=== PATIENT | female | born 1985 | race Caucasian/White ===

== ENCOUNTER 2017-08-31 10:24 | Emergency (ER) | payer MEDICAID ==
[2017-08-31 11:06] LABS: Bilirubin Negative (Negative); Blood, Urine Trace (Negative); Clarity Clear (Clear); Glucose, Urine (Dipstick) Negative (Negative); Leukocyte Negative (Negative); Nitrite Negative (Negative); Protein, Urine (Dipstick) Negative (Neg-Trace); Urobilinogen 0.2 mg/dL (0.2-1.0)
[2017-08-31 11:14] LABS: Pregnancy Test - Urine (BHCG) Negative (Negative); Pregu Control Background? CLEAR/WHITE (CLR/WHITE); Pregu Control Bar Appear? YES (CONTROL BAR)
[2017-08-31 11:16] LABS: Bacteria/HPF Rare-Few HPF (None Seen); RBC/HPF 0-3 HPF (0-3); WBC/HPF None Seen HPF (0-3)
[2017-08-31] MEDS ORDERED: Ibuprofen 800 MG TAB ONE (11:19)
--- NOTE | 2017-08-31 12:01 | ULT ---
PELVIC ULTRASOUND: Date: 08/31/17 Transabdominal and endovaginal ultrasound of pelvis performed. INDICATION: Left lower quadrant and left pelvic pain. FINDINGS: The uterus has normal sonographic appearance. Uterine measurements recorded at 8.8 x 3.5 x 4.4 cm. Th e endometrium is mildly thickened, measured up to 1.2 cm. Right ovary is not identified. Left ovary is identified and appears unremarkable. Color Doppler with spectral analysis demonstrates blood flow to the left ovary. Small amount of free fluid seen in the cul-de-sac. IMPRESSION: 1. Mildly thickened endometrium. 2. Small amount of free fluid in the cul-de-sac. 3. Right ovary not identified due to overlying bowel gas in right pelvis. POS: [facility]
[2017-09-03 23:28] LABS: Chlamydia by PCR Not Detected (NotDetected); GC by PCR Not Detected (NotDetected)
== END 2017-08-31 12:13 | disposition home or self-care (01) ==
LOC: SCSER 10:24
DX: R10.2 Pelvic and perineal pain (principal); I10 Essential (primary) hypertension; F41.9 Anxiety disorder, unspecified; Z79.899 Other long term (current) drug therapy
CPT/HCPCS: 76856; 81003; 81015; 81025; 87480; 87491; 87510; 87591; 87660

== ENCOUNTER 2018-03-01 09:53 | Emergency (ER) | payer MEDICAID | END 2018-03-01 10:24 | disposition home or self-care (01) | LOC: SCSER 09:53 | DX: O99.89 Other specified diseases and conditions complicating pregnancy, childbirth and the puerperium (principal); R05 Cough; O99.343 Other mental disorders complicating pregnancy, third trimester; F41.9 Anxiety disorder, unspecified; O16.3 Unspecified maternal hypertension, third trimester; Z3A.30 30 weeks gestation of pregnancy | CPT/HCPCS: 99283 ==

== ENCOUNTER 2018-03-20 12:26 | Emergency (ER) | payer OTHER ==
[2018-03-20] MEDS ORDERED: HYDROcodone/Acetaminophen 5/325 mg Tablet ONE (13:20)
[2018-03-20 13:55] LABS: Bilirubin Negative (Negative); Blood, Urine Negative (Negative); Clarity Slightly Cloudy (Clear); Glucose, Urine (Dipstick) Negative (Negative); Leukocyte Negative (Negative); Nitrite Negative (Negative); Protein, Urine (Dipstick) Negative (Neg-Trace); Urobilinogen 0.2 mg/dL (0.2-1.0)
[2018-03-20 13:59] LABS: #Basophils 0.1 thou/uL (0.0-0.2); #Lymphocytes 0.8 thou/uL (1.20-3.40); #Monocytes 0.5 thou/uL (0.11-0.59); #Neutrophils 8.5 thou/uL (1.40-6.50); %Basophils 0.5 % (0.0-1.0); %Eosinophils 0.2 % (0.0-10.0); %Lymphocytes 8.3 % (21.0-51.0); %Monocytes 4.9 % (0.0-10.0); %Neutrophils 86.1 % (42.0-75.0); Hemoglobin 12.4 g/dL (12.0-16.0); Mean Corpuscular HGB CONC 32.6 g/dL (32.0-36.0); Mean Corpuscular Hemoglobin 27.8 pg (27.0-31.0); Mean Corpuscular Volume 85.3 fL (78.0-98.0); Mean Platelet Volume 10.6 fL (7.4-10.4); Platelet Count 207 thou/uL (130-400); RBC Distribution Width 14.1 % (11.5-14.5); Red Blood Cell (RBC) Count 4.45 mill/uL (4.20-5.40); White Blood Cell (WBC) Count 9.9 thou/uL (4.8-10.8)
[2018-03-20 14:07] LABS: ALT (SGPT) 11 U/L (8-55); AST (SGOT) 13 U/L (5-34); Albumin 3.5 g/dL (3.5-5.0); Alkaline Phosphatase 113 U/L (40-150); Anion Gap 14 mmol/L (10-20); BUN (Urea Nitrogen) 6 mg/dL (7.0-18.7); Bilirubin, Total 0.3 mg/dL (0.2-1.2); Calc. Creatinine Clearance 0 mL/min (70-130); Calcium 9.1 mg/dL (7.8-10.44); Carbon Dioxide 19 mmol/L (22-29); Chloride 107 mmol/L (98-107); Estimated GFR-MDRD Greater than 90; Glucose 94 mg/dL (70-105); Potassium 4.2 mmol/L (3.5-5.1); Protein, Total 7.5 g/dL (6.0-8.3); Sodium 136 mmol/L (136-145)
== END 2018-03-20 14:32 | disposition home or self-care (01) ==
LOC: SCSER 12:26
DX: O99.713 Diseases of the skin and subcutaneous tissue complicating pregnancy, third trimester (principal); L02.412 Cutaneous abscess of left axilla; O99.343 Other mental disorders complicating pregnancy, third trimester; F41.9 Anxiety disorder, unspecified; I10 Essential (primary) hypertension; Z79.899 Other long term (current) drug therapy; Z3A.33 33 weeks gestation of pregnancy
CPT/HCPCS: 80053; 81003; 83605; 85025; 87804; 96360

== ENCOUNTER 2018-04-02 12:12 | Inpatient (IN) | payer OTHER ==
[2018-04-02 13:06] LABS: #Basophils 0.1 thou/uL (0.0-0.2); #Eosinphils 0.3 thou/uL (0.0-0.7); #Lymphocytes 2.8 thou/uL (1.20-3.40); #Monocytes 0.9 thou/uL (0.11-0.59); #Neutrophils 10.2 thou/uL (1.40-6.50); %Basophils 0.7 % (0.0-1.0); %Eosinophils 2.1 % (0.0-10.0); %Lymphocytes 19.7 % (21.0-51.0); %Monocytes 6.3 % (0.0-10.0); %Neutrophils 71.3 % (42.0-75.0); Hemoglobin 12.8 g/dL (12.0-16.0); Mean Corpuscular HGB CONC 32.9 g/dL (32.0-36.0); Mean Corpuscular Hemoglobin 29.5 pg (27.0-31.0); Mean Corpuscular Volume 89.7 fL (78.0-98.0); Mean Platelet Volume 8.8 fL (7.4-10.4); Platelet Count 313 thou/uL (130-400); RBC Distribution Width 14.3 % (11.5-14.5); Red Blood Cell (RBC) Count 4.32 mill/uL (4.20-5.40); White Blood Cell (WBC) Count 14.3 thou/uL (4.8-10.8)
[2018-04-02 13:25] VITALS: BMI 52.0
[2018-04-02 13:33] LABS: ALT (SGPT) 7 U/L (8-55); AST (SGOT) 12 U/L (5-34); Albumin 3.3 g/dL (3.5-5.0); Alkaline Phosphatase 128 U/L (40-150); Anion Gap 15 mmol/L (10-20); BUN (Urea Nitrogen) 6 mg/dL (7.0-18.7); Bilirubin, Total Less than 0.2 mg/dL (0.2-1.2); Calc. Creatinine Clearance 262 mL/min (70-130); Calcium 9.5 mg/dL (7.8-10.44); Carbon Dioxide 17 mmol/L (22-29); Chloride 108 mmol/L (98-107); Estimated GFR-MDRD Greater than 90; Globulin 4.1 g/dL (2.4-3.5); Glucose 92 mg/dL (70-105); Potassium 3.8 mmol/L (3.5-5.1); Protein, Total 7.4 g/dL (6.0-8.3); Sodium 136 mmol/L (136-145)
[2018-04-02] MEDS ORDERED: Betamet Acet/Betamet Na Ph 30 MG/5 ML VIAL ONE (13:47)
[2018-04-02] MEDS ORDERED: Betamet Acet/Betamet Na Ph 30 MG/5 ML VIAL IM SCH (14:00)
[2018-04-02 14:45] VITALS: BP 117/55; TEMP 97.9
[2018-04-02 15:19] LABS: Creatinine, Urine 230.25 mg/dL (47-110)
--- NOTE | 2018-04-02 16:06 | ULT ---
OBSTETRIC SONOGRAM LIMITED SONOGRAPHIC BIOPHYSICAL PROFILE EXAM: 04/02/18 HISTORY: induced hypertension. FINDINGS: Single intrauterine gestation in breech presentation. Grade I placenta is posterior. Heart motion dem onstrated at 131 beats per minute. Amniotic fluid index 12.3. Good tone, breathing, and gross movements are demonstrated. IMPRESSION: Sonographic biophysical profile exam is 12/04. POS: [facility]
== END 2018-04-02 16:40 | disposition home health service (06) | DRG 832 ==
LOC: L&D/OP 12:12 → L&D 12:16
PROVIDERS: ADMIT Family Medicine; ATTEND Family Medicine
DX: O10.913 Unspecified pre-existing hypertension complicating pregnancy, third trimester (principal); Z68.43 Body mass index [BMI] 50.0-59.9, adult; O34.219 Maternal care for unspecified type scar from previous cesarean delivery; E66.9 Obesity, unspecified; O99.213 Obesity complicating pregnancy, third trimester; Z3A.34 34 weeks gestation of pregnancy; Z79.899 Other long term (current) drug therapy
CPT/HCPCS: 36415; 76819; 80053; 82570; 84156; 85025; J0702

== ENCOUNTER 2018-04-02 21:06 | Day surgery (SDC) | payer OTHER ==
[2018-04-02 21:53] VITALS: BMI 52.0
--- NOTE | 2018-04-04 04:15 | PRG ---
DATE OF SERVICE: 04/02/2018 OB ER ENCOUNTER PRIMARY OIL WELL LOGGER: Gagan Novak MD CHIEF COMPLAINT: Vaginal bleeding. HISTORY OF PRESENT ILLNESS: The patient is a 33-year-old female, who re-presented to the labor and Delivery ER after her initial PIH workup earlier in the day with complaints of vaginal bleeding. The patient reports that when she went to the bathroom and wiped, she noticed that she had blood on the toilet paper and got concerned and came in. Of note, the patient had a cath UA performed at her previous visit to the Labor and Delivery ER the same day. The patient denies any other complaints. PAST MEDICAL HISTORY: Chronic hypertension. PAST SURGICAL HISTORY: Prior x1. MEDICATIONS: 1. Procardia XL. 2. vitamins. ALLERGIES: NO KNOWN DRUG ALLERGIES. SOCIAL HISTORY: Denies drug, alcohol, or tobacco use. LABORATORY DATA: OB labs, unavailable at the time of dictation. REVIEW OF SYSTEMS: Per HPI. PHYSICAL EXAMINATION: VITAL SIGNS: Blood pressure 126/68, heart rate of 109, respiratory rate 20, temperature 98.1. GENERAL: She appears to be in no acute distress. She is alert and oriented, cooperative, pleasant to interact with. HEAD: Normocephalic and atraumatic. LUNGS: Clear to auscultation bilaterally. HEART: Has regular rate and rhythm. ABDOMEN: Soft, gravid, nontender. PELVIC: Vulva is without masses, lesions, or erythema. Her vestibular region around just superior to her urethra shows a very small laceration to the mucosa with a small blood clot there, appears to have been bleeding. There is no blood visible at the introitus or in the outer portion of vaginal vault. On digital exam, there is no blood seen on the glove. heart tracing shows the fetus with a baseline in the 140s with moderate long-term variability. Positive acceleration. No deceleration. Tocometer does not show any contraction. ASSESSMENT AND PLAN: The patient is a 33-year-old female with a history of chronic hypertension, previously seen today for a PIH workup and received a straight cath UA, resulting in a small laceration in the mucosa above the urethra. It appears that her very isolated bleeding came from the small laceration. Reassurance has been given to the patient. Fetus has a category one tracing. The patient has been discharged to home with instructions to follow up with her primary OB as scheduled. Job ID: [id number]
== END 2018-04-02 22:38 | disposition home or self-care (01) ==
LOC: L&D/OP 21:06
PROVIDERS: ATTEND Family Medicine
DX: O71.5 Other obstetric injury to pelvic organs (principal); O16.9 Unspecified maternal hypertension, unspecified trimester; Z3A.00 Weeks of gestation of pregnancy not specified; Z79.2 Long term (current) use of antibiotics; Z79.899 Other long term (current) drug therapy; Z98.890 Other specified postprocedural states
CPT/HCPCS: 99282

== ENCOUNTER 2018-04-06 11:02 | Day surgery (SDC) | payer OTHER ==
[2018-04-06 11:35] VITALS: BMI 52.0
[2018-04-06 11:37] VITALS: BP 117/68; TEMP 97.4
[2018-04-06] MEDS ORDERED: Acetaminophen/Codeine 30-300mg Tablet PO PRN (12:46)
--- NOTE | 2018-04-06 12:54 | PDOC.FPROB ---
FMR OB H&P: HPI - History of Present Illness Chief Complaint: dental pain, high bp History of Present Illness: Patient comes in for evaluation of dental pain getting worse for the last 3-4 days. She states the pain became untolerable today and she has been unable to eat or drink without pain. She is still able to drink luke-warm liquids but it does cause her some pain. She denies fevers, chills, sweats. No pain with jaw movement. No N/V/D. She states she has had a few jer-knowles contractions but nothing regular. Denies vaginal bleeding/discharge. Denies headache, visual changes, sob, or swelling. Denies burning with urination., States she checked her bp at [facility] and saw that it was in the 160s systolic. On arrival BP x2 in the 120s/80s. Primary Care Physician: sunny FMR OB H&P: Current - Care : 3 Para: 2 Gestational age: 35.3 Due date: 05/08/18 Dating Criteria: 1T US - OB Labs Blood type: A RH: positive Antibody Screen: negative HIV: negative RPR: negative HepBsAg: negative Quad screen: positive (down's) Gonorrhea: negative Chlamydia: negative FMR OB H&P: History - Past Medical History PMH: patient denies BP, DM, asthma - OB History OB History: PIH, C/S x1 pre-e plans for repeat c/s - Surgical History Sx History: c/s x1 - Social History Social History: denies alcohol, tobacco, or drugs FMR OB H&P: Medications - Current Home Medications: Medication Instructions Recorded Confirmed Type NIFEdipine [Procardia XL] 30 mg PO DAILY 04/02/18 04/06/18 History Amoxicillin/Potassium Clav 1 each PO BID 7 Days #14 tablet 04/06/18 Rx [Augmentin 875-125 Tablet] Allergies/Adverse Reactions: Allergies Allergy/AdvReac Type Severity Reaction Status Date / Time No Known Drug Allergies Allergy Verified 04/02/18 13:22 FMR OB H&P: ROS - Review of Systems General: denies: fever/chills, weight/appetite/sleep changes, night sweats, fatigue Eyes: denies: eye pain, vision changes ENT: reports: toothache. denies: nasal congestion, sore throat, trouble with swallowing Cardiovascular: denies: chest pain, palpitation Respiratory: denies: cough, congestion, shortness of breath Gastrointestinal: denies: abdominal pain, indigestion, diarrhea, constipation Genitourinary (Female): denies: dysuria, hematuria Musculoskeletal: denies: pain, stiffness Neurologic: denies: numbness, syncope Integumentary: denies: itching, rash Hematologic/Lymphatic: denies: prolonged or excessive bleeding FMR OB H&P: Vital Signs - Maternal Vital signs: Vital Signs - First Documented Temp Pulse Resp BP 97.4 F L 114 H 20 117/68 04/06/18 11:29 04/06/18 11:29 04/06/18 11:29 04/06/18 11:29 FMR OB H&P: Physical Exam - Physical Exam General: NAD, awake, alert and oriented HEENT: PERRLA, EOMI, MMM Deviation from normal: L 3rd molar likely cavity, mild gingivits, no swelling to jaw, no pain TMJ Neck: supple Heart: RRR, normal S1/S2 General: CTAB, no respiratory distress, good air movement Abdomen: soft, gravid, fundus(cm) Musculoskeletal: normal gait and station Neurological: cranial nerves II through XII intact Skin: no rash, capillary refill <2 seconds FMR OB H&P: A/P - Problem List (1) Pain, dental Status: Acute Code(s): K08.89 - OTHER SPECIFIED DISORDERS OF TEETH AND SUPPORTING STRUCTURES (2) Pain due to dental caries Status: Acute Code(s): K02.9 - DENTAL CARIES, UNSPECIFIED (3) Status: Acute Disposition: # Dental pain - likey dental caries at L 3rd molar, mild gingivitis - Augmentin 875mg BID - Tylenol #3 tabs q6 hrs PRN - f/u with dentist LYSSA # Hx PIH - BP WNL x2 - no PIH sxs - recent workup 3-4 days ago WNL - f/u with PCP in 2-3 days Discussion: Date/Time: 04/06/18 1249 This H&P was discussed with [] and [] who agree with the above documentation and plan. Attending Addendum - Attending Addendum Date/Time: 04/06/18 0246 I personally evaluated the patient and discussed the management with Dr. Navarro. I agree with the History, Examination, Assessment and Plan documented above.
== END 2018-04-06 13:20 | disposition home or self-care (01) ==
LOC: L&D/OP 11:02
PROVIDERS: ATTEND Family Medicine
DX: O99.613 Diseases of the digestive system complicating pregnancy, third trimester (principal); K08.89 Other specified disorders of teeth and supporting structures; K05.10 Chronic gingivitis, plaque induced; O16.3 Unspecified maternal hypertension, third trimester; Z3A.35 35 weeks gestation of pregnancy; Z79.899 Other long term (current) drug therapy
CPT/HCPCS: 99283

== ENCOUNTER 2018-04-08 04:02 | Day surgery (SDC) | payer OTHER ==
[2018-04-08 04:34] VITALS: BP 141/78; TEMP 97.5; BMI 52.0
[2018-04-08 04:56] LABS: Creatinine, Urine 179.35 mg/dL (47-110)
[2018-04-08 05:09] LABS: #Basophils 0.1 thou/uL (0.0-0.2); #Eosinphils 0.2 thou/uL (0.0-0.7); #Lymphocytes 3.5 thou/uL (1.20-3.40); #Monocytes 0.9 thou/uL (0.11-0.59); #Neutrophils 8.8 thou/uL (1.40-6.50); %Basophils 0.4 % (0.0-1.0); %Eosinophils 1.2 % (0.0-10.0); %Lymphocytes 26.1 % (21.0-51.0); %Monocytes 6.7 % (0.0-10.0); %Neutrophils 65.5 % (42.0-75.0); Hemoglobin 12.8 g/dL (12.0-16.0); Mean Corpuscular HGB CONC 33.5 g/dL (32.0-36.0); Mean Corpuscular Hemoglobin 29.8 pg (27.0-31.0); Platelet Count 283 thou/uL (130-400); RBC Distribution Width 14.3 % (11.5-14.5); White Blood Cell (WBC) Count 13.4 thou/uL (4.8-10.8)
[2018-04-08 05:29] LABS: ALT (SGPT) 9 U/L (8-55); AST (SGOT) 10 U/L (5-34); Albumin 3.5 g/dL (3.5-5.0); Alkaline Phosphatase 122 U/L (40-150); Anion Gap 15 mmol/L (10-20); BUN (Urea Nitrogen) 9 mg/dL (7.0-18.7); Bilirubin, Total 0.2 mg/dL (0.2-1.2); Calc. Creatinine Clearance 258 mL/min (70-130); Calcium 9.2 mg/dL (7.8-10.44); Carbon Dioxide 18 mmol/L (22-29); Chloride 105 mmol/L (98-107); Estimated GFR-MDRD Greater than 90; Globulin 3.4 g/dL (2.4-3.5); Glucose 99 mg/dL (70-105); Potassium 4.3 mmol/L (3.5-5.1); Protein, Total 6.9 g/dL (6.0-8.3); Sodium 134 mmol/L (136-145)
[2018-04-08] MEDS ORDERED: Lactated Ringer's 1,000 ML IV SCH (05:30)
[2018-04-08] MEDS: Metoclopramide HCl 10 MG/2 ML VIAL IVP PRN ×4 (05:47→07:17)
[2018-04-08] MEDS: diphenhydrAMINE 50 MG/ML VIAL IVP PRN ×2 (05:48→06:46)
== END 2018-04-08 08:40 | disposition home health service (06) ==
LOC: L&D/OP 04:02
PROVIDERS: ATTEND Family Medicine
DX: O99.89 Other specified diseases and conditions complicating pregnancy, childbirth and the puerperium (principal); R51 Headache; R07.9 Chest pain, unspecified; Z79.899 Other long term (current) drug therapy
CPT/HCPCS: 36415; 80053; 82570; 84156; 85025; 96360; 96361; 96375; 99283; J1200; J2765

== ENCOUNTER 2018-04-18 09:50 | Inpatient (IN) | payer OTHER ==
[2018-04-18] MEDS ORDERED: Lactated Ringer's 1,000 ML IV SCH ×2 (10:45→17:37)
[2018-04-18] MEDS ORDERED: Ondansetron PF 4 MG/2 ML Vial IVP PRN ×3 (10:45→17:37)
[2018-04-18] MEDS ORDERED: Bicitra 30 ML UDCUP PO SCH (11:00)
[2018-04-18] MEDS ORDERED: CEFAZOLIN 3 GM, Admixture Fee 1 EACH in Sodium Chloride 0.9% 100 ML IVPB SCH (11:30)
[2018-04-18 11:35] LABS: Hemoglobin 13.1 g/dL (12.0-16.0); Mean Corpuscular HGB CONC 33.2 g/dL (32.0-36.0); Mean Corpuscular Hemoglobin 29.2 pg (27.0-31.0); Mean Corpuscular Volume 88.1 fL (78.0-98.0); Platelet Count 273 thou/uL (130-400); RBC Distribution Width 14.2 % (11.5-14.5); Red Blood Cell (RBC) Count 4.47 mill/uL (4.20-5.40)
[2018-04-18] MEDS ORDERED: Ondansetron PF 4 MG/2 ML Vial ONE ×3 (11:53→14:11)
[2018-04-18] MEDS ORDERED: Morphine PF 1 MG/ML SYR ONE (11:53)
[2018-04-18] MEDS ORDERED: Oxytocin 10 UNITS/ML VIAL ONE (11:53)
[2018-04-18] MEDS ORDERED: Midazolam HCl 2 mg/2 ml Vial ONE (11:53)
[2018-04-18] MEDS ORDERED: ePHEDrine/0.9% NaCl/PF SYRINGE 50 mg/10 ml ONE (11:53)
[2018-04-18] MEDS ORDERED: CEFAZOLIN/Water 2 GM/20 ML SYRINGE SLOW IVP SCH (12:00)
[2018-04-18 12:15] LABS: Syphilis Antibody Nonreactive (Nonreactive); Syphilis Antibody Index 0.04 S/CO (<1.00 Non-Reactive)
[2018-04-18 12:16] LABS: HBSAg Index 0.24 S/CO (0-0.99); Hep B Surf Ag Non-Reactive S/CO (NonReactive)
[2018-04-18 12:20] VITALS: BMI 51.0
[2018-04-18] MEDS ORDERED: Fentanyl 250 MCG/5 ML VIAL ONE (12:33)
[2018-04-18] MEDS ORDERED: PROPOFOL 20 ML ONE (12:34)
[2018-04-18] MEDS ORDERED: Rocuronium Bromide 50 MG/5 ML VIAL ONE (12:34)
[2018-04-18] MEDS ORDERED: Succinylcholine Chloride 20 MG/ML 10 ml SYRINGE FS ONE (12:34)
[2018-04-18] MEDS ORDERED: PHENYLEPHRINE-NS 100 MCG/ML 10 ML SYRINGE ONE (12:41)
[2018-04-18] MEDS ORDERED: Meperidine HCl/PF 25 MG/ML VIAL SLOW IVP PRN (12:57)
[2018-04-18] MEDS ORDERED: HYDROmorphone 2 MG/ML VIAL SLOW IVP PRN (12:57)
[2018-04-18] MEDS ORDERED: Ondansetron HCl/PF 4 MG/2 ML Vial IVP PRN (12:57)
[2018-04-18] MEDS ORDERED: L&D-Morphine 4 MG/ML VIAL SLOW IVP PRN (12:57)
[2018-04-18] MEDS ORDERED: Promethazine HCl 25 MG/ML VIAL IM PRN (12:58)
[2018-04-18] MEDS ORDERED: Zolpidem Tartrate 5 MG TAB PO PRN (12:58)
[2018-04-18] MEDS ORDERED: fentaNYL Citrate/PF 2,000 MCG in Sodium Chloride 0.9% 60 ML IV PRN (12:58)
[2018-04-18] MEDS ORDERED: Naloxone HCl 0.4 mg/ml Vial IV PRN (12:58)
[2018-04-18] MEDS ORDERED: diphenhydrAMINE 50 MG/ML VIAL IVP PRN (12:58)
[2018-04-18] MEDS ORDERED: diphenhydrAMINE 50 MG/ML VIAL IM PRN (12:58)
[2018-04-18] MEDS ORDERED: diphenhydrAMINE 25 MG CAP PO PRN ×2 (12:58→17:37)
[2018-04-18] MEDS ORDERED: Ketorolac Tromethamine 30 MG/ML VIAL IVP SCH (13:00)
[2018-04-18] MEDS ORDERED: Communication Order-Pharmacy FS SCH (13:00)
[2018-04-18] MEDS ORDERED: Atropine Sulfate 0.4 mg/1 ml Vial ONE (13:05)
[2018-04-18] MEDS ORDERED: Atropine Sulfate 1 mg/10 ml Syringe ONE (13:06)
[2018-04-18] MEDS ORDERED: NS / Oxytocin 40 units/1000ml 1,000 ML ONE (13:58)
[2018-04-18] MEDS ORDERED: Fentanyl 100 MCG/2 ML VIAL ONE (14:00)
[2018-04-18] MEDS ORDERED: HYDROcodone/Acetaminophen 5/325 mg Tablet PO PRN (17:37)
[2018-04-18] MEDS ORDERED: Meperidine HCl/PF 25 MG/ML VIAL IM PRN (17:37)
[2018-04-18] MEDS ORDERED: Simethicone Chewable 80 MG TAB PO PRN (17:37)
[2018-04-18] MEDS ORDERED: Bisacodyl 10 MG SUPP PR PRN (17:37)
[2018-04-18] MEDS ORDERED: Lanolin Ointment 7 GM TUBE TOP PRN (17:37)
[2018-04-18] MEDS ORDERED: NS / Oxytocin 40 units/1000ml 1,000 ML IV SCH (17:37)
[2018-04-18] MEDS: Ibuprofen 800 MG TAB PO SCH ×2 (18:05→22:52)
[2018-04-18] MEDS: Docusate Calcium (SURFAK) 240 MG CAP PO SCH (22:51)
[2018-04-18] MEDS: Ferrous Sulfate 325 MG TAB PO SCH (22:52)
--- NOTE | 2018-04-19 00:34 | OP ---
DATE OF PROCEDURE: 04/18/2018 RESIDENT SURGEON: Lance De Leon DO. ATTENDING SURGEON: Gagan Novak MD. PROCEDURE PERFORMED: Repeat low-transverse section. PREOPERATIVE DIAGNOSES: 1. Term intrauterine . 2. Previous section. 3. Chronic hypertension. POSTOPERATIVE DIAGNOSES: 1. Term intrauterine , delivered. 2. Repeat low-transverse section. 3. Chronic hypertension. ANESTHESIA: General. INDICATIONS: The patient is a 33-year-old G2, now P2 female at 37 and 1 week gestation, who presents for repeat scheduled . PROCEDURE IN DETAIL: After risks, benefits, and alternatives were explained to the patient, she gave informed consent. Preoperative antibiotics included 3 g of Ancef IV. The patient was taken to the operating room and she was placed in the supine position with left lateral tilt, and prepped and draped in usual sterile fashion. Subsequently, the patient underwent general anesthesia. Pfannenstiel incision was made with a scalpel and carried down to the level of the fascia, which was sharply nicked. The fascial cut was extended bilaterally with Nur scissors. The inferior and superior edges of the cut fascial edges were elevated with Kandy clamps and underlying rectus muscles were sharply and bluntly dissected free. The recti were divided digitally and retracted manually. The peritoneum was entered bluntly and retracted manually. The bladder blade was placed. A low-transverse score was made with a scalpel and the uterus was entered in the midline with the scalpel. Clear fluid was seen. The hysterotomy was extended manually. The infant was noted to be breech, but was easily delivered with fundal pressure. The mouth and nares were bulb suctioned. The cord was clamped and cut and grossly normal female infant was handed to the awaiting nurse. Cord blood was obtained. Placenta was manually extracted, found to be intact and sent for pathology. The uterus was externalized and the endometrium was curetted with a dry lap. The bladder blade was replaced and the uterus was closed with a running locking 0 Vicryl suture, followed by approximately 4 [id number] sutures with 0 Vicryl. Additionally, Floseal was used to ensure hemostasis at the site of hysterotomy. Following the use of Floseal, a small imbricating layer was added to the left portion of the hysterotomy and subsequently hemostasis was noted. The abdomen was irrigated with saline and suctioned free of clots. The uterus was internalized and hysterotomy was again noted to be hemostatic. Fascia was closed with a running nonlocking 0 PDS suture. Subcutaneous tissue was irrigated and there were no bleeders. The subcutaneous tissue was approximated with 3-0 Vicryl suture. The skin was subsequently approximated with anibal and pressure dressing was placed. All counts were correct. The patient tolerated the procedure well and was taken to the recovery room in stable condition. ESTIMATED BLOOD LOSS: Approximately 600 mL. COMPLICATIONS: None. SPECIMENS: Cord blood sent to the lab for blood type. Placenta sent for pathology review. FINDINGS: 1. Grossly normal female infant with Apgars of 9 and 9. 2. Grossly normal placenta with 3-vessel cord sent for pathology review. DRAINS: Victor to gravity draining clear urine. Job ID: [id number] [facility]
[2018-04-19] MEDS: HYDROcodone/Acetaminophen 5/325 mg Tablet PO PRN ×5 (04:17→20:40)
[2018-04-19 05:42] LABS: Hemoglobin 10.9 g/dL (12.0-16.0); Mean Corpuscular Hemoglobin 29.4 pg (27.0-31.0); Mean Platelet Volume 8.7 fL (7.4-10.4); Platelet Count 231 thou/uL (130-400); RBC Distribution Width 14.1 % (11.5-14.5); Red Blood Cell (RBC) Count 3.69 mill/uL (4.20-5.40); White Blood Cell (WBC) Count 12.8 thou/uL (4.8-10.8)
[2018-04-19] MEDS: Ibuprofen 800 MG TAB PO SCH ×3 (06:49→20:40)
[2018-04-19] MEDS: Ferrous Sulfate 325 MG TAB PO SCH ×2 (08:13→20:41)
[2018-04-19] MEDS: Docusate Calcium (SURFAK) 240 MG CAP PO SCH ×2 (09:09→20:40)
[2018-04-19] MEDS: Prenatal Vitamin 1 TAB PO SCH (09:10)
[2018-04-19] MEDS: Citalopram 20 MG TAB PO SCH (09:10)
[2018-04-19] MEDS ORDERED: Sodium Chloride 0.9% 10 ML ONE (11:51)
[2018-04-20] MEDS: HYDROcodone/Acetaminophen 5/325 mg Tablet PO PRN ×6 (00:55→22:41)
[2018-04-20] MEDS: Ibuprofen 800 MG TAB PO SCH ×3 (04:47→21:19)
--- NOTE | 2018-04-20 08:11 | PDOC.PP ---
Post Progress Note Post Day #: 2 Subjective: Doing well, no complaints. PO intake tolerated: yes Flatus: yes Ambulation: yes Vital Signs (12 hours) Temp Pulse Resp BP 04/20/18 04:00 98.3 F 103 H 18 118/59 L Weight Weight 270 lb - Physical Examination General: NAD Respiratory: non-labored breathing Abdominal: lochia, no distention, appropriately TTP Fundus firm & at: U-3 Skin: CS incision dry & intact, no rash Neurological: no gross focal deficits Psychiatric: A&Ox3, normal affect Result Diagrams: 04/19/18 05:24 Additional Labs: Post Labs Blood Type A POSITIVE 04/18/18 11:15 Hep Bs Antigen Non-Reactive S/CO (NonReactive) 04/18/18 11:15 (1) delivery delivered Code(s): O82 - ENCOUNTER FOR DELIVERY WITHOUT INDICATION Status: Acute - Assessment/Plan Continue routine postop care. Anticipate d/c tomorrow.
[2018-04-20] MEDS: Docusate Calcium (SURFAK) 240 MG CAP PO SCH ×2 (09:25→21:19)
[2018-04-20] MEDS: Citalopram 20 MG TAB PO SCH (09:25)
[2018-04-20] MEDS: Prenatal Vitamin 1 TAB PO SCH (09:25)
[2018-04-20] MEDS: Ferrous Sulfate 325 MG TAB PO SCH (09:41)
[2018-04-21] MEDS: HYDROcodone/Acetaminophen 5/325 mg Tablet PO PRN ×3 (02:26→11:45)
[2018-04-21] MEDS: Ferrous Sulfate 325 MG TAB PO SCH ×2 (02:27→10:35)
[2018-04-21] MEDS: Ibuprofen 800 MG TAB PO SCH (07:18)
[2018-04-21 08:09] VITALS: TEMP 98.1
[2018-04-21] MEDS: Citalopram 20 MG TAB PO SCH (10:35)
[2018-04-21] MEDS: Docusate Calcium (SURFAK) 240 MG CAP PO SCH (10:35)
[2018-04-21] MEDS: Prenatal Vitamin 1 TAB PO SCH (10:35)
[2018-04-21 11:43] VITALS: BP 125/69
--- NOTE | 2018-04-22 22:10 | DIS ---
DATE OF ADMISSION: 04/18/2018 DATE OF DISCHARGE: 04/21/2018 ADMITTING DIAGNOSIS: Intrauterine at 39 weeks' gestation for a scheduled repeat section. DISCHARGE DIAGNOSIS: Intrauterine at 39 weeks' gestation for a scheduled repeat section. PROCEDURE: Repeat section. HOSPITAL COURSE: The patient is a 33-year-old female, who presented for a scheduled repeat at 37 weeks secondary to prior and chronic hypertension. The patient's postoperative course has been uncomplicated. The patient is tolerating p.o., voiding on her own, having decreased lochia. She had a bowel movement today. The patient reports that her pain has been improved since passing gas. PHYSICAL EXAMINATION: VITAL SIGNS: This morning, blood pressure 120/61, pulse of 95, and temperature 98.1. GENERAL: She appears to be in minimal distress. She is alert and oriented. Cooperative and pleasant to interact with. ABDOMEN: Incision is covered with a Prevena wound VAC. EXTREMITIES: Nontender. The patient will be discharged to home. She has instructions to call on Saturday to make an appointment for staple removal this week. She also has instructions to seek medical attention sooner prior to her 2-week visit, if she experiences fever, increasing pain, or bleeding or redness or drainage from her incision site. The patient will be discharged to home with ibuprofen and Tylenol No. 3. Job ID: [id number]
== END 2018-04-21 14:15 | disposition home or self-care (01) | DRG 787 ==
LOC: L&D 09:50 → 3SW 17:22
PROVIDERS: ADMIT Family Medicine; ATTEND Family Medicine
PROC: 10D00Z1 Extraction of Products of Conception, Low, Open Approach (ICD-10-PCS; principal; 2018-04-18)
DX: O65.5 Obstructed labor due to abnormality of maternal pelvic organs (principal); O10.913 Unspecified pre-existing hypertension complicating pregnancy, third trimester; O34.219 Maternal care for unspecified type scar from previous cesarean delivery; N85.8 Other specified noninflammatory disorders of uterus; Z37.0 Single live birth; Z3A.39 39 weeks gestation of pregnancy; O99.343 Other mental disorders complicating pregnancy, third trimester; O99.213 Obesity complicating pregnancy, third trimester; E66.01 Morbid (severe) obesity due to excess calories; F41.0 Panic disorder [episodic paroxysmal anxiety]
CPT/HCPCS: 36415; 51702; 85027; 86780; 86850; 86900; 86901; 87340; 88307; J0461; J0690; J2250; J2274; J2405; J2590; J2704; J3010; J7050

== ENCOUNTER 2018-05-13 18:33 | Emergency (ER) | payer OTHER ==
[2018-05-13 20:18] LABS: #Basophils 0.1 thou/uL (0.0-0.2); #Eosinphils 0.2 thou/uL (0.0-0.7); #Lymphocytes 3.7 thou/uL (1.20-3.40); #Monocytes 0.7 thou/uL (0.11-0.59); #Neutrophils 6.2 thou/uL (1.40-6.50); %Basophils 0.7 % (0.0-1.0); %Eosinophils 1.7 % (0.0-10.0); %Lymphocytes 33.9 % (21.0-51.0); %Monocytes 6.4 % (0.0-10.0); %Neutrophils 57.4 % (42.0-75.0); Mean Corpuscular HGB CONC 32.8 g/dL (32.0-36.0); Mean Corpuscular Hemoglobin 29.2 pg (27.0-31.0); Mean Corpuscular Volume 89.1 fL (78.0-98.0); Mean Platelet Volume 9.7 fL (7.4-10.4); Platelet Count 311 thou/uL (130-400); RBC Distribution Width 13.3 % (11.5-14.5); Red Blood Cell (RBC) Count 4.78 mill/uL (4.20-5.40); White Blood Cell (WBC) Count 10.8 thou/uL (4.8-10.8)
[2018-05-13 20:18] LABS: Bilirubin Negative (Negative); Blood, Urine Negative (Negative); Clarity CLEAR (Clear); Glucose, Urine (Dipstick) Negative (Negative); Leukocyte Small (Negative); Nitrite Negative (Negative); Protein, Urine (Dipstick) Negative (Neg-Trace); Specific Gravity, Urine 1.022 (1.002-1.036)
[2018-05-13 20:20] LABS: Bacteria/HPF None Seen HPF (None Seen); Hyaline Casts/LPF 0-3 HYALINE CAST LPF (0-3 Hyaline); Pathc Cast-AUWi Flag 0.14 (0-2.49)
[2018-05-13 20:32] LABS: ALT (SGPT) 20 U/L (8-55); AST (SGOT) 19 U/L (5-34); Albumin 4.3 g/dL (3.5-5.0); Alkaline Phosphatase 136 U/L (40-150); Anion Gap 14 mmol/L (10-20); BUN (Urea Nitrogen) 12 mg/dL (7.0-18.7); Bilirubin, Total 0.2 mg/dL (0.2-1.2); Calc. Creatinine Clearance 0 mL/min (70-130); Calcium 9.5 mg/dL (7.8-10.44); Carbon Dioxide 23 mmol/L (22-29); Chloride 105 mmol/L (98-107); Estimated GFR-MDRD Greater than 90; Globulin 3.6 g/dL (2.4-3.5); Glucose 95 mg/dL (70-105); Lipase 31 U/L (8-78); Potassium 3.9 mmol/L (3.5-5.1); Protein, Total 7.9 g/dL (6.0-8.3); Sodium 138 mmol/L (136-145)
== END 2018-05-13 22:36 | disposition home or self-care (01) ==
LOC: ERS 18:33
DX: R10.11 Right upper quadrant pain (principal); F41.9 Anxiety disorder, unspecified
CPT/HCPCS: 80053; 81003; 81015; 83690; 85025; 96360

== ENCOUNTER 2018-05-25 16:17 | Emergency (ER) | payer OTHER ==
[2018-05-25] MEDS ORDERED: Ketorolac Tromethamine 30 MG/ML VIAL ONE (16:46)
[2018-05-25 17:02] LABS: Bilirubin Small (Negative); Blood, Urine Moderate (Negative); Glucose, Urine (Dipstick) Negative (Negative); Leukocyte Negative (Negative); Nitrite Negative (Negative); Protein, Urine (Dipstick) 30 mg/dL (Neg-Trace); Urobilinogen 0.2 mg/dL (0.2-1.0); pH, Urine 6.5 (5.0-9.0)
[2018-05-25 17:04] LABS: Pregnancy Test - Urine (BHCG) Negative (Negative); Pregu Control Background? CLEAR/WHITE (CLR/WHITE); Pregu Control Bar Appear? YES (CONTROL BAR)
[2018-05-25 17:05] LABS: Clarity Hazy (Clear)
[2018-05-25 17:06] LABS: Hemoglobin 14.2 g/dL (12.0-16.0); Mean Corpuscular HGB CONC 31.7 g/dL (32.0-36.0); Mean Corpuscular Hemoglobin 27.8 pg (27.0-31.0); Mean Corpuscular Volume 87.7 fL (78.0-98.0); Red Blood Cell (RBC) Count 5.12 mill/uL (4.20-5.40); White Blood Cell (WBC) Count 11.6 thou/uL (4.8-10.8)
[2018-05-25 17:07] LABS: #Basophils 0.1 thou/uL (0.0-0.2); #Eosinphils 0.1 thou/uL (0.0-0.7); #Lymphocytes 3.8 thou/uL (1.20-3.40); #Monocytes 0.5 thou/uL (0.11-0.59); #Neutrophils 7.2 thou/uL (1.40-6.50); %Basophils 1.1 % (0.0-1.0); %Eosinophils 0.6 % (0.0-10.0); %Lymphocytes 32.6 % (21.0-51.0); %Monocytes 4.3 % (0.0-10.0); %Neutrophils 61.5 % (42.0-75.0); Mean Platelet Volume 10.1 fL (7.4-10.4); Platelet Count 351 thou/uL (130-400); RBC Distribution Width 13.8 % (11.5-14.5)
[2018-05-25 17:09] LABS: Bacteria/HPF 2+ HPF (None Seen); Squamous Epithelial 21-50 HPF (0-3); WBC/HPF 0-3 HPF (0-3)
[2018-05-25 17:19] LABS: ALT (SGPT) 37 U/L (8-55); AST (SGOT) 36 U/L (5-34); Albumin 4.4 g/dL (3.5-5.0); Alkaline Phosphatase 148 U/L (40-150); Anion Gap 19 mmol/L (10-20); BUN (Urea Nitrogen) 11 mg/dL (7.0-18.7); Bilirubin, Total 0.4 mg/dL (0.2-1.2); Calc. Creatinine Clearance 0 mL/min (70-130); Calcium 9.6 mg/dL (7.8-10.44); Carbon Dioxide 22 mmol/L (22-29); Chloride 103 mmol/L (98-107); Estimated GFR-MDRD Greater than 90; Globulin 3.6 g/dL (2.4-3.5); Glucose 89 mg/dL (70-105); Potassium 4.1 mmol/L (3.5-5.1); Sodium 140 mmol/L (136-145)
[2018-05-25] MEDS ORDERED: Morphine 4 MG/ML Carpuject ONE (17:56)
--- NOTE | 2018-05-25 21:16 | ULT ---
ULTRASOUND PELVIC ULTRASOUND TRANSVAGINAL DOPPLER DUPLEX: DATE: 05-25-18 HISTORY: 33-year-old female 5 weeks post- status, Caesarian section, presents with mild vaginal bleeding and right lower quadrant/pelvic pain. TECHNIQUE: Transabdominal transducer used to evaluate intrapelvic contents. Endovaginal transducer used to visua lize intrapelvic contents in greater detail. Color flow Doppler and Pulsed Doppler spectral waveform analysis of ovaries. FINDINGS: The uterus measures 10 x 4.5 x 5 cm. Endometrial stripe is indistinct and difficult to measure at the fundus and body of the uterus. Right ovary is approximately 2.2 x 1.2 x 1.2 cm. Left ovary is approximately 2.7 x 2.0 x 1.8 cm and contains a 2 x 1.5 x 1.5 cm small cyst. Blood flow is demonstrated in both ovaries by doppler. There is a tiny, trace amount of free fluid in the cul-de-sac. In the anterior body of the uterus, there is an approximately 1.5 x 2 x 1.5 cm focus of mixed echogen icity, consisting of low and intermediate echogenicity, interspersed with numerous hyperechoic short stripes. This may represent the sight of . It is slightly less likely to represent a fibroid . IMPRESSION: 1. Recently post- uterus. 2. Focal mass-like lesion in the anterior myometrium is favored to represent changes of , an d is somewhat less likely to represent a leiomyoma. 3. Otherwise, no major pathology identified. CAROLINA Casey POS: [facility]
== END 2018-05-25 19:08 | disposition home or self-care (01) ==
LOC: SCSER 16:17
DX: R10.2 Pelvic and perineal pain (principal); E86.0 Dehydration; I10 Essential (primary) hypertension; F41.9 Anxiety disorder, unspecified; F17.210 Nicotine dependence, cigarettes, uncomplicated
CPT/HCPCS: 76856; 80053; 81003; 81015; 81025; 85025; 96361; 96374; 96375; J1885; J2270

== ENCOUNTER 2018-11-25 09:49 | Emergency (ER) | payer OTHER, SELFPAY ==
--- NOTE | 2018-11-25 10:44 | RAD ---
Exam:Left ankle 3 views HISTORY: Pain. Injury. Fall. COMPARISON: None FINDINGS: Lateral soft tissue swelling. No evidence of fracture, cortical irregularity or periosteal reaction IMPRESSION: Lateral soft tissue swelling, without evidence of fracture. Immobilization and follow-up imaging in 7-10 days, based upon clinical finding and/or suspicions
== END 2018-11-25 13:33 | disposition home or self-care (01) ==
LOC: SCSER 09:49
DX: S93.402A Sprain of unspecified ligament of left ankle, initial encounter (principal); F17.210 Nicotine dependence, cigarettes, uncomplicated; I10 Essential (primary) hypertension; Z79.899 Other long term (current) drug therapy; W01.0XXA Fall on same level from slipping, tripping and stumbling without subsequent striking against object, initial encounter; F41.9 Anxiety disorder, unspecified

== ENCOUNTER 2021-05-29 18:13 | Emergency (ER) | payer SELFPAY ==
[2021-05-29] MEDS ORDERED: Labetalol HCl 100 MG/20 ML VIAL ONE (18:42)
[2021-05-29 19:00] LABS: BHCG - Serum POSITIVE (NEGATIVE); Pregs Control Background? CLEAR/WHITE (CLR/WHITE); Pregs Control Bar Appear? YES (CONTROL BAR)
[2021-05-29 20:40] LABS: ALT (SGPT) 22 U/L (8-55); AST (SGOT) 16 U/L (5-34); Albumin 3.6 g/dL (3.5-5.0); Alkaline Phosphatase 69 U/L (40-110); Anion Gap 11 mmol/L (10-20); BUN (Urea Nitrogen) 9 mg/dL (7.0-18.7); Bilirubin, Total 0.2 mg/dL (0.2-1.2); Calc. Creatinine Clearance 0 mL/min (70-130); Carbon Dioxide 25 mmol/L (22-29); Chloride 104 mmol/L (98-107); Globulin 3.6 g/dL (2.4-3.5); Glucose 99 mg/dL (70-105); Potassium 3.7 mmol/L (3.5-5.1); Protein, Total 7.2 g/dL (6.0-8.3); Sodium 136 mmol/L (136-145)
[2021-05-29 22:06] LABS: Bilirubin Negative (Negative); Blood, Urine Negative (Negative); Clarity Clear (Clear); Glucose, Urine (Dipstick) Normal (Negative); Ketone, Urine Negative (Negative); Leukocyte Negative Leu/uL (Negative); Nitrite Negative (Negative); Protein, Urine (Dipstick) 20 mg/dL (Neg-Trace); Specific Gravity, Urine 1.027 (1.002-1.036); Urobilinogen Normal mg/dL (Less than 2)
[2021-05-29 23:24] LABS: Creatinine, Urine 226.09 mg/dL (47-110)
== END 2021-05-29 22:40 | disposition home or self-care (01) ==
LOC: ERS 18:13
DX: O16.1 Unspecified maternal hypertension, first trimester (principal); O99.331 Smoking (tobacco) complicating pregnancy, first trimester; F17.210 Nicotine dependence, cigarettes, uncomplicated; Z79.899 Other long term (current) drug therapy; Z3A.09 9 weeks gestation of pregnancy
CPT/HCPCS: 36415; 80053; 81003; 82570; 84156; 84703; 93005; 96374

== ENCOUNTER 2021-12-24 12:47 | Emergency (ER) | payer MEDICAID ==
[2021-12-24 13:25] LABS: #Eosinphils 0.2 thou/uL (0.0-0.7); #Lymphocytes 3.1 thou/uL (1.20-3.40); #Monocytes 0.7 thou/uL (0.11-0.59); %Basophils 0.4 % (0.0-1.0); %Eosinophils 1.4 % (0.0-10.0); %Lymphocytes 27.9 % (21.0-51.0); %Monocytes 6.7 % (0.0-10.0); %Neutrophils 63.6 % (42.0-75.0); Mean Corpuscular HGB CONC 32.3 g/dL (32.0-36.0); Mean Corpuscular Hemoglobin 28.3 pg (27.0-31.0); Mean Corpuscular Volume 87.8 fL (78.0-98.0); Mean Platelet Volume 8.2 fL (7.4-10.4); Platelet Count 424 thou/uL (130-400); RBC Distribution Width 13.8 % (11.5-14.5); Red Blood Cell (RBC) Count 4.23 mill/uL (4.20-5.40); White Blood Cell (WBC) Count 10.9 thou/uL (4.8-10.8)
[2021-12-24 13:50] LABS: ALT (SGPT) 30 U/L (8-55); AST (SGOT) 25 U/L (5-34); Albumin 3.9 g/dL (3.5-5.0); Alkaline Phosphatase 126 U/L (40-110); Anion Gap 18 mmol/L (10-20); BUN (Urea Nitrogen) 18 mg/dL (7.0-18.7); Bilirubin, Total 0.4 mg/dL (0.2-1.2); Calc. Creatinine Clearance 0 mL/min (70-130); Calcium 8.8 mg/dL (7.8-10.44); Carbon Dioxide 21 mmol/L (22-29); Chloride 104 mmol/L (98-107); Estimated GFR 108; Globulin 3.4 g/dL (2.4-3.5); Glucose 89 mg/dL (70-105); Potassium 3.7 mmol/L (3.5-5.1); Protein, Total 7.3 g/dL (6.0-8.3); Sodium 139 mmol/L (136-145); Uric Acid 8.4 mg/dL (2.6-6.0)
[2021-12-24] MEDS ORDERED: Magnesium 2 GM/50 ML BAG (IN WATER) ONE (14:01)
[2021-12-24] MEDS ORDERED: Ketorolac Tromethamine 30 MG/ML VIAL ONE (14:02)
[2021-12-24] MEDS ORDERED: Labetalol HCl 100 MG/20 ML VIAL ONE (14:03)
[2021-12-24 14:44] LABS: Bacteria/HPF None Seen HPF (None Seen); Bilirubin Negative (Negative); Blood, Urine 2+ (Negative); Clarity Clear (Clear); Glucose, Urine (Dipstick) Normal (Negative); Ketone, Urine Negative (Negative); Leukocyte 500 Leu/uL (Negative); Nitrite Negative (Negative); Protein, Urine (Dipstick) Negative (Neg-Trace); Specific Gravity, Urine 1.024 (1.002-1.036); Squamous Epithelial 0-3 HPF (0-3); Urobilinogen Normal mg/dL (Less than 2); pH, Urine 6.5 (5.0-9.0)
[2021-12-24 14:55] LABS: Transitional Epithelial 0-3 HPF (None Seen)
== END 2021-12-24 17:23 | disposition short-term general hospital (02) ==
LOC: ERS 12:47
DX: O14.95 Unspecified pre-eclampsia, complicating the puerperium (principal)
CPT/HCPCS: 76856; 80053; 81003; 81015; 84550; 85025; 86850; 86900; 86901; 96374; 96375; J1885; J3475

== ENCOUNTER 2022-09-02 08:40 | Emergency (ER) | payer OTHER, MEDICAID ==
[2022-09-02] MEDS ORDERED: Iopamidol 370 76% 100 ML VIAL ONE (08:48)
[2022-09-02] MEDS ORDERED: Ondansetron ODT 4 MG TAB ONE (10:25)
[2022-09-02] MEDS ORDERED: Ketorolac Tromethamine 30 MG/ML VIAL ONE (10:25)
[2022-09-02 10:37] LABS: #Basophils 0.1 thou/uL (0.0-0.2); #Eosinphils 0.1 thou/uL (0.0-0.7); #Lymphocytes 2.7 thou/uL (1.20-3.40); #Monocytes 0.5 thou/uL (0.11-0.59); #Neutrophils 5.9 thou/uL (1.40-6.50); %Basophils 0.9 % (0.0-1.0); %Eosinophils 0.8 % (0.0-10.0); %Monocytes 5.5 % (0.0-10.0); %Neutrophils 63.7 % (42.0-75.0); Hemoglobin 14.6 g/dL (12.0-16.0); Mean Corpuscular HGB CONC 33.8 g/dL (32.0-36.0); Mean Corpuscular Hemoglobin 30.1 pg (27.0-31.0); Mean Corpuscular Volume 89.1 fl (78.0-98.0); Mean Platelet Volume 8.3 fL (7.4-10.4); Platelet Count 272 10x3/uL (130-400); RBC Distribution Width 13.5 % (11.5-14.5); Red Blood Cell (RBC) Count 4.86 mill/uL (4.20-5.40); White Blood Cell (WBC) Count 9.2 10x3/uL (4.8-10.8)
[2022-09-02 11:03] LABS: ALT (SGPT) 26 U/L (8-55); AST (SGOT) 21 U/L (5-34); Albumin 4.3 g/dL (3.5-5.0); Alkaline Phosphatase 80 U/L (40-110); Anion Gap 14 mmol/L (10-20); BUN (Urea Nitrogen) 13 mg/dL (7.0-18.7); Bilirubin, Total 0.4 mg/dL (0.2-1.2); Calc. Creatinine Clearance 0 mL/min (70-130); Calcium 9.6 mg/dL (7.8-10.44); Carbon Dioxide 23 mmol/L (22-29); Chloride 104 mmol/L (98-107); Estimated GFR 114; Globulin 3.3 g/dL (2.4-3.5); Glucose 87 mg/dL (70-105); Potassium 4.1 mmol/L (3.5-5.1); Protein, Total 7.6 g/dL (6.0-8.3); Sodium 137 mmol/L (136-145)
[2022-09-02 11:11] LABS: BHCG - Serum Negative (NEGATIVE); Pregs Control Background? CLEAR/WHITE (CLR/WHITE); Pregs Control Bar Appear? YES (CONTROL BAR)
[2022-09-02 12:39] LABS: Bilirubin Negative (Negative); Blood, Urine Negative (Negative); Clarity Clear (Clear); Glucose, Urine (Dipstick) Normal (Negative); Ketone, Urine Negative (Negative); Leukocyte Negative Leu/uL (Negative); Nitrite Negative (Negative); Protein, Urine (Dipstick) 20 mg/dL (Neg-Trace); Specific Gravity, Urine 1.026 (1.002-1.036); Urobilinogen Normal mg/dL (Less than 2); pH, Urine 6.5 (5.0-9.0)
== END 2022-09-02 14:33 | disposition home or self-care (01) ==
LOC: ERS 08:40
DX: N83.202 Unspecified ovarian cyst, left side (principal); I10 Essential (primary) hypertension
CPT/HCPCS: 36415; 74177; 76856; 80053; 81003; 84703; 85025; 96372; J1885; Q0162; Q9967

== ENCOUNTER 2022-11-21 07:51 | Emergency (ER) | payer OTHER ==
[2022-11-21] MEDS ORDERED: Ondansetron PF 4 MG/2 ML Vial ONE (08:25)
[2022-11-21] MEDS ORDERED: Ketorolac Tromethamine 30 MG/ML VIAL ONE (08:25)
[2022-11-21 08:33] LABS: #Basophils 0.1 thou/uL (0.0-0.2); #Eosinphils 0.3 thou/uL (0.0-0.7); #Monocytes 0.8 thou/uL (0.11-0.59); #Neutrophils 11.5 thou/uL (1.40-6.50); %Basophils 0.6 % (0.0-1.0); %Lymphocytes 17.4 % (21.0-51.0); %Monocytes 5.1 % (0.0-10.0); Hemoglobin 14.3 g/dL (12.0-16.0); Mean Corpuscular HGB CONC 32.2 g/dL (32.0-36.0); Mean Corpuscular Hemoglobin 28.8 pg (27.0-31.0); Mean Corpuscular Volume 89.3 fl (78.0-98.0); Mean Platelet Volume 10.7 fL (7.4-10.4); Platelet Count 402 10x3/uL (130-400); RBC Distribution Width 14.7 % (11.5-14.5); Red Blood Cell (RBC) Count 4.97 mill/uL (4.20-5.40); White Blood Cell (WBC) Count 15.5 10x3/uL (4.8-10.8)
[2022-11-21 08:39] LABS: BHCG - Serum Negative (NEGATIVE); Pregs Control Background? CLEAR/WHITE (CLR/WHITE); Pregs Control Bar Appear? YES (CONTROL BAR)
[2022-11-21 08:47] LABS: ALT (SGPT) 18 U/L (8-55); AST (SGOT) 20 U/L (5-34); Albumin 4.4 g/dL (3.5-5.0); Alkaline Phosphatase 90 U/L (40-110); Anion Gap 14 mmol/L (10-20); BUN (Urea Nitrogen) 10 mg/dL (7.0-18.7); Bilirubin, Total 0.2 mg/dL (0.2-1.2); Calc. Creatinine Clearance 0 mL/min (70-130); Calcium 9.4 mg/dL (7.8-10.44); Carbon Dioxide 23 mmol/L (22-29); Chloride 105 mmol/L (98-107); Estimated GFR 109; Globulin 3.6 g/dL (2.4-3.5); Glucose 110 mg/dL (70-105); Lipase 27 U/L (8-78); Potassium 4.7 mmol/L (3.5-5.1); Sodium 137 mmol/L (136-145)
[2022-11-21 09:42] LABS: Bilirubin Negative (Negative); Blood, Urine Negative (Negative); CAUTI Indications for Culture Dysuria,urgency,freq; Clarity Turbid (Clear); Glucose, Urine (Dipstick) Normal (Negative); Ketone, Urine Negative (Negative); Leukocyte Negative Leu/uL (Negative); Nitrite Negative (Negative); Protein, Urine (Dipstick) Negative (Neg-Trace); RBC/HPF 0-3 HPF (0-3); Specific Gravity, Urine 1.011 (1.002-1.036); Urobilinogen Normal mg/dL (Less than 2); WBC/HPF 0-3 HPF (0-3); pH, Urine 6.5 (5.0-9.0)
[2022-11-21 09:43] LABS: Bacteria/HPF 1+ HPF (None Seen)
[2022-11-21 09:44] LABS: Urine Culture Reflex No No
== END 2022-11-21 10:31 | disposition home or self-care (01) ==
LOC: ERS 07:51
DX: R10.9 Unspecified abdominal pain (principal); D72.829 Elevated white blood cell count, unspecified; R11.2 Nausea with vomiting, unspecified; I10 Essential (primary) hypertension; Z79.899 Other long term (current) drug therapy
CPT/HCPCS: 74176; 80053; 81001; 83690; 84703; 85025; 96361; 96374; 96375; J1885; J2405

== ENCOUNTER 2022-12-25 03:08 | Emergency (ER) | payer OTHER ==
[2022-12-25] MEDS ORDERED: Ketorolac Tromethamine 30 MG/ML VIAL ONE (03:51)
[2022-12-25 04:20] LABS: Bacteria/HPF None Seen HPF (None Seen); Bilirubin Negative (Negative); Blood, Urine Negative (Negative); CAUTI Indications for Culture Pelvic or flank pain; Clarity Clear (Clear); Glucose, Urine (Dipstick) Normal (Negative); Ketone, Urine Negative (Negative); Leukocyte Negative Leu/uL (Negative); Nitrite Negative (Negative); Protein, Urine (Dipstick) Negative (Neg-Trace); RBC/HPF 0-3 HPF (0-3); Specific Gravity, Urine 1.016 (1.002-1.036); Squamous Epithelial 0-3 HPF (0-3); Urobilinogen Normal mg/dL (Less than 2); WBC/HPF None Seen HPF (0-3)
[2022-12-25 04:20] LABS: #Basophils 0.1 thou/uL (0.0-0.2); #Eosinphils 0.2 thou/uL (0.0-0.7); #Monocytes 0.7 thou/uL (0.11-0.59); #Neutrophils 6.1 thou/uL (1.40-6.50); %Basophils 0.7 % (0.0-1.0); %Eosinophils 2.3 % (0.0-10.0); %Lymphocytes 28.5 % (21.0-51.0); %Monocytes 6.7 % (0.0-10.0); Hematocrit 40.5 % (36.0-47.0); Hemoglobin 13.3 g/dL (12.0-16.0); Mean Corpuscular HGB CONC 32.8 g/dL (32.0-36.0); Mean Corpuscular Hemoglobin 29.2 pg (27.0-31.0); Mean Corpuscular Volume 88.8 fl (78.0-98.0); Mean Platelet Volume 11.1 fL (7.4-10.4); Platelet Count 359 10x3/uL (130-400); RBC Distribution Width 14.5 % (11.5-14.5); Red Blood Cell (RBC) Count 4.56 mill/uL (4.20-5.40)
[2022-12-25 04:21] LABS: Urine Culture Reflex No No
[2022-12-25 04:43] LABS: BHCG - Serum Negative (NEGATIVE); Pregs Control Background? CLEAR/WHITE (CLR/WHITE); Pregs Control Bar Appear? YES (CONTROL BAR)
[2022-12-25 04:46] LABS: ALT (SGPT) 21 U/L (8-55); AST (SGOT) 15 U/L (5-34); Albumin 4.3 g/dL (3.5-5.0); Alkaline Phosphatase 95 U/L (40-110); Anion Gap 15 mmol/L (10-20); BUN (Urea Nitrogen) 15 mg/dL (7.0-18.7); Bilirubin, Total 0.2 mg/dL (0.2-1.2); Calc. Creatinine Clearance 0 mL/min (70-130); Calcium 9.3 mg/dL (7.8-10.44); Carbon Dioxide 21 mmol/L (22-29); Chloride 105 mmol/L (98-107); Estimated GFR 107; Globulin 3.5 g/dL (2.4-3.5); Glucose 138 mg/dL (70-105); Potassium 3.9 mmol/L (3.5-5.1); Protein, Total 7.8 g/dL (6.0-8.3); Sodium 137 mmol/L (136-145)
== END 2022-12-25 06:09 | disposition home or self-care (01) ==
LOC: ERS 03:08
DX: N80.9 Endometriosis, unspecified (principal); I10 Essential (primary) hypertension
CPT/HCPCS: 36415; 76856; 80053; 81001; 84703; 85025; 96361; 96374; J1885

== ENCOUNTER 2023-01-01 05:10 | Emergency (ER) | payer OTHER ==
[2023-01-01] MEDS ORDERED: Lorazepam 1 MG TAB ONE (05:17)
[2023-01-01 05:33] LABS: #Basophils 0.1 thou/uL (0.0-0.2); #Eosinphils 0.3 thou/uL (0.0-0.7); #Monocytes 0.8 thou/uL (0.11-0.59); #Neutrophils 3.7 thou/uL (1.40-6.50); %Basophils 1.2 % (0.0-1.0); %Eosinophils 4.3 % (0.0-10.0); %Lymphocytes 35.6 % (21.0-51.0); %Neutrophils 48.2 % (42.0-75.0); Hematocrit 40.8 % (36.0-47.0); Hemoglobin 13.3 g/dL (12.0-16.0); Mean Corpuscular HGB CONC 32.6 g/dL (32.0-36.0); Mean Corpuscular Volume 88.9 fl (78.0-98.0); Mean Platelet Volume 10.2 fL (7.4-10.4); Platelet Count 351 10x3/uL (130-400); RBC Distribution Width 14.2 % (11.5-14.5); Red Blood Cell (RBC) Count 4.59 mill/uL (4.20-5.40); White Blood Cell (WBC) Count 7.7 10x3/uL (4.8-10.8)
[2023-01-01 05:42] LABS: BHCG - Serum Negative (NEGATIVE); Pregs Control Background? CLEAR/WHITE (CLR/WHITE); Pregs Control Bar Appear? YES (CONTROL BAR)
[2023-01-01 05:57] LABS: ALT (SGPT) 17 U/L (8-55); AST (SGOT) 16 U/L (5-34); Albumin 4.1 g/dL (3.5-5.0); Alkaline Phosphatase 92 U/L (40-110); Anion Gap 14 mmol/L (10-20); BUN (Urea Nitrogen) 15 mg/dL (7.0-18.7); Bilirubin, Total Less than 0.2 mg/dL (0.2-1.2); Calc. Creatinine Clearance 0 mL/min (70-130); Calcium 9.3 mg/dL (7.8-10.44); Carbon Dioxide 21 mmol/L (22-29); Chloride 106 mmol/L (98-107); Estimated GFR 113; Globulin 3.3 g/dL (2.4-3.5); Glucose 113 mg/dL (70-105); Protein, Total 7.4 g/dL (6.0-8.3); Sodium 137 mmol/L (136-145)
[2023-01-01 05:59] LABS: Troponin I Less than 0.010 ng/mL (< 0.028)
== END 2023-01-01 06:32 | disposition home or self-care (01) ==
LOC: ERS 05:10
DX: R07.9 Chest pain, unspecified (principal); F43.0 Acute stress reaction; I10 Essential (primary) hypertension; F17.210 Nicotine dependence, cigarettes, uncomplicated
CPT/HCPCS: 36415; 71045; 80053; 84484; 84703; 85025; 93005